=== PATIENT | female | born 1960 | race Two or more races ===

== ENCOUNTER 2020-12-28 08:13 | Day surgery (SDC) | payer OTHER ==
[~2020-12-28 08:13] MED LIST: ATIVAN2 M1 PO; CELEXA20 MG PO; SEROQUEL50 MG PO
[2020-12-28] MEDS ORDERED: MACROBID 100 M100 MG PO (12:01)
[2020-12-28] MEDS ORDERED: ULTRACET PO (12:02)
== END 2020-12-28 16:05 | disposition home or self-care (01) ==
LOC: CIR.AMB 08:13
PROVIDERS: ATTEND Obstetrics & Gynecology Gynecology
DX: N39.3 Stress incontinence (female) (male) (principal); Z20.822 Contact with and (suspected) exposure to COVID-19
CPT/HCPCS: 57288; C1771